=== PATIENT | female | born 1990 | race Caucasian/White ===

== ENCOUNTER 2016-07-10 04:52 | Emergency (ER) | payer OTHER ==
--- NOTE | 2016-07-10 04:58 | ED GI/GU/ABDOMINAL COMPLAINT ---
History of Present Illness General Chief Complaint: Female Urogenital Problems Stated Complaint: ? UTI , ABD PAIN Source: patient Exam Limitations: no limitations Vital Signs & Intake/Output Vital Signs & Intake/Output Vital Signs Date Time Temp Pulse Resp B/P B/P Pulse O2 O2 Flow FiO2 Mean Ox Delivery Rate 07/10 0515 97 Room Air 07/10 0511 98.9 71 18 100/61 97 Room Air Allergies Coded Allergies: No Known Allergies (07/10/16) Reconcile Medications No Known Home Medications Triage Nurses Notes Reviewed? yes ? n Is pt currently ? No Duration: hour(s): Timing: recent history Quality/Severity: burning Location: suprapubic Radiation: no radiation Activities at Onset: none HPI: 26 yo woman with suprapubic discomfort, and right flank pain and dysuria since yesterday evening. She notes that she had blood tingued toilet paper when she wiped herself after urination. She shares her symptoms started, "in the middle of the night... I woke up.. I had really bad right abdominal pain... but then it mostly got better... It was bad when it happened, but then it got better." She states that she is feeling "mostly better" in the ED. She has no fever, chills, diarrhea, nausea, chills, abodminal tenderness. She is otherwise well. Past History Medical History Any Pertinent Medical History? see below for history Surgical History Surgical History: none Family History Comment: sister with kidney stones. Hx Contributory? Yes Review of Systems Review of Systems Constitutional: Reports: no symptoms. EENTM: Reports: no symptoms. Respiratory: Reports: no symptoms. Cardiovascular: Reports: no symptoms. GI: Reports: no symptoms. Genitourinary: Reports: no symptoms. Musculoskeletal: Reports: no symptoms. Skin: Reports: no symptoms. Neurological/Psychological: Reports: no symptoms. Hematologic/Endocrine: Reports: no symptoms. Immunologic/Allergic: Reports: no symptoms. All Other Systems: Reviewed and Negative Physical Exam Physical Exam General Appearance: well developed/nourished, no apparent distress Head: atraumatic, normal appearance Eyes: Bilateral: normal appearance. Ears, Nose, Throat, Mouth: hearing grossly normal Neck: normal inspection, supple, full range of motion, normal alignment Respiratory: normal breath sounds, chest non-tender, no respiratory distress, quiet respiration, lungs clear Cardiovascular: regular rate/rhythm Gastrointestinal: normal bowel sounds, soft, non-tender, no organomegaly Back: normal inspection, normal range of motion, vertebral tenderness, evidence of trauma Extremities: normal range of motion Neurologic/Psych: no motor/sensory deficits, awake Core Measures ACS in differential dx? No Severe Sepsis Present: No Septic Shock Present: No Progress Differential Diagnosis: kidney stone, UTI/pyelo, vs other. Plan of Care: Orders Procedure Date/time Status URINE 07/10 457 Complete URINALYSIS 07/10 457 Complete Laboratory Tests 07/10/16 0503: Urine Color YEL, Urine Clarity CLEAR, Urine pH 6.0, Ur Specific Stanton 1.020, Urine Protein 30 H, Urine Ketones NEG, Urine Nitrite NEG, Urine Bilirubin NEG, Urine Urobilinogen 0.2, Ur Leukocyte Esterase MOD H, Ur Microscopic SEDIMENT EXAMINED, Urine RBC 15-25 H, Urine WBC 1-3 H, Urine Bacteria FEW H, Urine Hemoglobin LARGE H, Urine Glucose NEG, Urine Test NEGATIVE Initial ED EKG: none Departure Departure Disposition: HOME OR SELF CARE Condition: Stable Clinical Impression Primary Impression: Renal colic on right side Departure Forms: Customer Survey General Discharge Information Prescriptions: Current Visit Scripts No Known Home Medications Comments pt's symptoms have resolved in the ED... her u/a is most consistent with passing a kidney stone. infection unlikely. she has a benign exam and is largely asymptomatic. She would like to go home. Labs deferred. Close follow up encouraged.
[2016-07-10 05:11] VITALS: BP 100/61
== END 2016-07-10 06:25 ==
LOC: ERH 04:52
DX: N23 Unspecified renal colic (principal)
CPT/HCPCS: 81001; 81025